=== PATIENT | male | born 1965 | race Two or more races ===

== ENCOUNTER → 2024-05-16 | Outpatient (CLI) | payer MEDICAID, SELFPAY ==
--- NOTE | 2024-05-16 11:42 | XR_ITS ---
Examination: MRI brain without intravenous contrast. Date and time of exam: May 16, 2024 1157 hours INDICATIONS: Left-sided headaches numbness right side of the face blurred vision beginning May 11, 2024 Technique: Multiple axial and sagittal images of the brain obtained. Siemens high-resolution 1.5 Sanna short bore scanners utilized. Sagittal sections, T1-weighted, TR 500, TE 14, are performed. Axial sections proton-density and T2-weighted have been obtained. Inversion recovery axial images, TR 9, 260, TE 111, TI 2500. Diffusion weighted images, axial sections, TR 4800, TE 128, B value 1000 Axial sections, ADC map, TR 4800, TE 128 Findings: Enlargement of the sella turcica is not present. The optic chiasm and infundibular are not remarkable. Prepontine and interpeduncular cisterns are not enlarged. There is no localized enlargement of the medulla or lisa. Fourth ventricle and cerebellar tonsils appear normal in position. No subacute area of hemorrhage density is seen. Mass in the cerebellopontine angle region is not evident. Globes symmetrical. Orbital musculature including medial lateral rectus muscles do not exhibit abnormality. Diffusion-weighted images demonstrate no focus of restricted diffusion. Increased white matter signal not seen Mass effect upon the ventricular system is not identified. Impression: Negative for acute hemorrhage mass effect or midline shift No acute infarct No MR findings diagnostic for demyelinating disease
== END | disposition home or self-care (01) ==
PROVIDERS: PCP Student in an Organized Health Care Education/Training Program; Referring Provider Student in an Organized Health Care Education/Training Program; Visit Provider Student in an Organized Health Care Education/Training Program
DX: G45.9 Transient cerebral ischemic attack, unspecified (principal)
CPT/HCPCS: 70551

== ENCOUNTER → 2024-08-09 | Outpatient (CLI) | payer MEDICAID, SELFPAY ==
--- NOTE | 2024-08-09 09:30 | XR_ITS ---
Examination: Carotid arterial duplex scan, ultrasound. Date and time of exam: August 09, T2 thousand 25 1044 hours INDICATIONS: Dizziness transient ischemic attacks months Technique: Multiple sonographic images have been obtained of the carotid arteries and vertebral arteries, B-mode/grayscale imaging and Doppler spectral analysis and color flow Peak systolic and diastolic velocities have been recorded. Systolic diastolic ratios have been calculated. Findings: Right peak systolic velocities: Distal internal carotid artery peak systolic velocity is 1.1 M/sec Proximal internal carotid artery peak systolic velocity is 0.8 M/sec Carotid bifurcation peak systolic velocity is 0.9 M/sec External carotid artery peak systolic velocity is 0.7 M/sec Vertebral artery flow is antegrade. Left peak systolic velocities: Distal internal carotid artery peak systolic velocity is 0.9 M/sec Proximal internal carotid artery peak systolic velocity is 0.8 M/sec Carotid bifurcation peak systolic velocity is 0.9 M/sec External carotid artery peak systolic velocity is 0.8 M/sec Vertebral artery flow is antegrade Doppler waveform analysis demonstrates no spectral broadening Impression: Right internal carotid artery demonstrates 0-10% stenosis. Left internal carotid artery demonstrates 0-10% stenosis.
== END | disposition home or self-care (01) ==
PROVIDERS: PCP Student in an Organized Health Care Education/Training Program; Referring Provider Student in an Organized Health Care Education/Training Program; Visit Provider Student in an Organized Health Care Education/Training Program
DX: G45.9 Transient cerebral ischemic attack, unspecified (principal)
CPT/HCPCS: 93880

== ENCOUNTER 2024-12-01 10:49 | Emergency (ER) | payer OTHER, SELFPAY ==
[2024-12-01 10:51] VITALS: BMI 23.3
[2024-12-01 10:58] VITALS: BP 146/87; PULSE 71; RESP 18; TEMP 36.7; O2SAT 100
--- NOTE | 2024-12-01 11:15 | XR_ITS ---
Examination: Left elbow 3 views Technique: Elbow AP, oblique, lateral 3 views Exam date and time: 08/31/2024, 11:27 a.m. INDICATION: Trauma. FINDINGS: No evidence of fracture or dislocation. No foreign body or soft tissue abnormality. Degenerative changes with joint space narrowing and marginal osteophytes. IMPRESSION: No acute abnormality.
--- NOTE | 2024-12-01 11:15 | XR_ITS ---
Examination: Forearm, left, 2 views. Technique: Forearm, AP, lateral 2 views Date and time of exam: 12/01/2024, 11:27 a.m. INDICATION: Trauma FINDINGS: No evidence of fracture or dislocation. No foreign body. IMPRESSION: Negative exam
--- NOTE | 2024-12-01 11:15 | XR_ITS ---
Shoulder bilateral, 3 views DATE: 12/01/2024, 11:27 a.m. INDICATION: Trauma Technique: Shoulder AP internal rotation, AP external rotation, Y view shoulder Findings: No evidence of acute fracture or dislocation. Mild degenerative changes are seen in the bilateral glenohumeral and acromioclavicular joints. IMPRESSION: No acute abnormality.
--- NOTE | 2024-12-01 11:15 | XR_ITS ---
Examination: Humerus 2 views left Technique: Humerus, AP lateral 2 views Date and time of exam: 12/01/2024, 11:27 a.m. INDICATION: Trauma FINDINGS: No evidence of fracture or dislocation. No foreign body or soft tissue abnormality. IMPRESSION: Negative exam
--- NOTE | 2024-12-01 11:15 | XR_ITS ---
Examination: Knee, right, 3 views Technique: Knee AP, lateral, oblique 3 views Date and time of exam: 12/01/2024 11:27 a.m. INDICATION: Trauma FINDINGS: No evidence of fracture or dislocation. Mild tricompartment degenerative changes with joint space narrowing and small marginal osteophytes IMPRESSION: No acute pulmonary abnormality
--- NOTE | 2024-12-01 13:16 | EDNOTE_ITS ---
<Statement entered by Yanique Rosenbaum MD - 12/16/24 14:16> As co-signing physician, I was present and available for consult prn. I concur with the plan and care as documented by the midlevel provider. ED Fall Injury RME/HPI General Chief Complaint: Extremity Injury, Lower Stated Complaint: GLF S/P AT WORK; L ARM PAIN X3 HRS Time Seen by Provider: 12/01/24 10:57 Arrival date/time: 12/01/24 10:49 This is a 59-year-old male that comes to the emergency room with complaints of fall. Patient states that he was working in the [employer] and he fell forward and injured his right shoulder left shoulder right knee and left upper arm and lower arm. Patient denies any loss of consciousness. Patient denies any neck or back pain. Patient has some mild bruising to his left upper arm and to his right knee. Related Data Home Medications ?Medication ?Instructions ?Recorded ?Confirmed Benazepril Hcl * (LOTENSIN *) 10 mg PO DAILY ##0 08/13 Metformin Hcl 1,000 mg PO BID ##0 08/14/11 erythromycin 500 mg tablet 500 mg PO TID ##0 08/14/11 ibuprofen 800 mg tablet 800 mg PO TID ##0 08/14/11 Previous Rx's ?Medication ?Instructions ?Recorded ibuprofen 600 mg tablet 600 mg PO QID PRN pain #10 t abs 12/01/24 Allergies Allergy/AdvReac Type Severity Reaction Status Date / Time No Known Allergies Allergy Unknown Verified 12/01/24 10:54 Review of Systems Review of Systems Systems Reviewed: All systems reviewed, normal except as documented Past Medical History Past Medical History ENDOCRINE: Positive Diabetes Mellitus Type 2 Social History SMOKING STATUS: Never smoker SUBSTANCE USE: does not use ALCOHOL: Never Travel History EBOLA RISK: No ED Exam Narrative Physical exam: VITAL SIGNS: Reviewed. GENERAL APPEARANCE: Alert and interactive, follows commands, no acute distress HEAD AND FACE: Non-traumatic. ENT: PERRL, conjuctiva pink and clear, eyelid no trauma, Mucous membrane moist. NECK: Supple, nontender, no nuchal rigidity. CHEST: No tenderness, no crepitus, no paradoxical movement, no retractions. LUNGS: breathing even and unlabored HEART: Regular rate, cap refill less than 2 seconds ABDOMEN: Soft, nondistended, no guarding, nontender NEUROLOGICAL: Gross motor function intact sensory function intact, Appropriate for age. MUSCULOSKELETAL: low back nontender, full range of motion. no midline tenderness, no meningismus, no step offs EXTREMITIES: No redness no swelling no skin breakdown on bilateral foot and leg. Distal neurovascular status intact bilateral foot. No snuffbox tenderness SKIN: Color pink, dry, some mild bruising to left upper arm mild bruising to his right knee., Full range of motion of bilateral arms and bilateral legs. Course Quality Measures none Orders Category Date Time Status XR elbow comp LT min 3V Stat Exams 12/01/24 11:15 Completed XR forearm LT 2V Stat Exams 12/01/24 11:15 Completed XR humerus LT MIN 2V Stat Exams 12/01/24 11:15 Completed XR knee RT 3V Stat Exams 12/01/24 11:15 Completed XR shoulder BI min 2V Stat Exams 12/01/24 11:15 Completed Ibuprofen Tab [Motrin Tab] Med 12/01/24 13:24 Discontinued 600 mg PO X1 ONE Vital Signs Vital signs: Vital Signs Temperature 98.0 F 12/01/24 10:58 Pulse Rate 71 12/01/24 10:58 Respiratory Rate 18 12/01/24 10:58 Blood Pressure 146/87 H 12/01/24 10:58 Pulse Oximetry (%) 100 12/01/24 10:58 Oxygen Delivery Method Room Air 12/01/24 10:58 Fall MDM Narrative MDM Narrative:: Shoulder x-ray: Findings: No evidence of acute fracture or dislocation. Mild degenerative changes are seen in the bilateral glenohumeral and acromioclavicular joints. IMPRESSION: No acute abnormality. Knee x-ray: FINDINGS: No evidence of fracture or dislocation. Mild tricompartment degenerative changes with joint space narrowing and small marginal osteophytes IMPRESSION: No acute pulmonary abnormality Left humerus x-ray: FINDINGS: No evidence of fracture or dislocation. No foreign body or soft tissue abnormality. IMPRESSION: Negative exam Left forearm x-ray: INDICATION: Trauma FINDINGS: No evidence of fracture or dislocation. No foreign body. IMPRESSION: Negative exam Left elbow x-ray: FINDINGS: No evidence of fracture or dislocation. No foreign body or soft tissue abnormality. Degenerative changes with joint space narrowing and marginal osteophytes. IMPRESSION: No acute abnormality. Today patient had xrays. here was no acute fracture seen. Exam appeared unremarkable. I explained to patient at length that if there was continued pain to this area or worsened to come back to ED or see primary provider for more xrays or further testing such as CT scan or MRI. X rays are not perfect and sometimes serial films needed. Patient verbalized understanding. Patient states they will follow up with primary provider in 1-2 days or come back to ED if symptoms change or worsen. Explained to patient that x-rays do not show ligament injury. And there is a possibility he may need more x-rays MRI or a CT scan patient verbalized understanding dragon dictation: Although this document has been carefully reviewed, there may still be some phonetic and other typographical errors. These errors are purely grammatical due to imperfections in the software program and should not be construed in any way to compromise the substance of the patient's medical care during this visit. Patient data External records reviewed:: [facility] previous records Clinical information provided by:: patient Social determinants that could affect healthcare access:: none Patient has the following chronic illnesses:: Denies How is presenting disease/condition affected by chronic disease/condition?: no chronic disease Evaluation data The following diagnostics were reviewed and interpreted by me:: radiology exam(s) Lab and/or radiology exams considered but not ordered:: See note Interpretation Summary: See note Medications / Prescriptions Medications or Prescriptions considered but not ordered:: None Medication administrations:: Medication Administration History Discontinued Medications Ibuprofen (Ibuprofen Tab 600 Mg Tablet) 600 mg PO X1 ONE Stop: 12/01/24 13:25 Last Admin: 12/01/24 13:35 Dose: Not Given Documented By: OA Non-Admin Reason: Patient Refused See note Consultations Consultation(s) initiated? (list below): No Diagnosis Fall Differential Diagnosis: dislocation of shoulder region, fracture of wrist and other Most likely diagnosis given after review of the tests above:: Knee contusion arm contusion Admission Indicated Admission indicated?: not indicated Admission Request Was there a request for admission?: No Disposition Plan Disposition Plan: Discharge Discharge Attestation Discharge Attestation: The patient and all family members were given an opportunity to ask questions and understood the discharge instructions. Discharge instructions specifically effects, indications for sooner follow up or return to the emergency department, and the expected course of current diagnosis. Patient condition: Stable Discharge Plan Plan Patient Disposition: HOME (Self Care) Patient condition on transfer: Stable Prescriptions/Referrals Prescriptions/Med Rec: New ibuprofen 600 mg tablet 600 mg PO QID PRN (Reason: pain) Qty: 10 0RF No Action erythromycin 500 MG tablet 500 mg PO TID Qty: 0 ibuprofen 800 MG tablet 800 mg PO TID Qty: 0 Benazepril Hcl * (LOTENSIN *) 10 MG tablet 10 mg PO DAILY Qty: 0 Metformin Hcl 1,000 MG tablet 1,000 mg PO BID Qty: 0 Referrals: Enrique Wright [Primary Care Provider] - In 1 week Problem List Clinical Impression: Contusion of knee, right, Contusion of right shoulder, Contusion of left shoulder, Contusion of arm, left Patient/Caregiver Discharge Instructions Discharge Activity: activity as tolerated Education Materials: Bruises (Contusions) Additional Instructions: Kristy un bret con siegel medico de cabecera en las proximas 24-48 horas. Regrese a la alan de emergencias si hay evidencia de que los signos o sintomas empeoran. Print Language: Mohawk Stand Alone Forms: Jenniffer Award Info., Patient Portal Info Letter PA/BEATER TENDER Supervising Physician PA/BEATER TENDER Supervising Physician: lana
== END 2024-12-01 13:36 | disposition home or self-care (01) ==
PROVIDERS: Emergency Provider Emergency Medicine; PCP Physician Assistant
DX: S80.01XA Contusion of right knee, initial encounter (principal); S80.02XA Contusion of left knee, initial encounter; S40.011A Contusion of right shoulder, initial encounter; S40.012A Contusion of left shoulder, initial encounter; S40.022A Contusion of left upper arm, initial encounter; W19.XXXA Unspecified fall, initial encounter; Z79.1 Long term (current) use of non-steroidal anti-inflammatories (NSAID)
CPT/HCPCS: 73030; 73060; 73080; 73090; 73562; 99283